=== PATIENT | female | born 1955 | race Caucasian/White ===

== ENCOUNTER 2017-10-01 09:30 | Outpatient (RCR) | payer BC | END 2017-10-03 11:09 | disposition home or self-care (01) | LOC: WSOT 09:30 | DX: M65.841 Other synovitis and tenosynovitis, right hand (principal) ==

== ENCOUNTER → 2017-10-03 | Outpatient (CLI) | payer BC | LOC: COL.VAS 09:00 | DX: I34.0 Nonrheumatic mitral (valve) insufficiency (principal) ==

== ENCOUNTER 2018-01-16 09:00 | Outpatient (RCR) | payer BC | END 2018-01-27 | disposition home or self-care (01) | LOC: WSPT | DX: M54.2 Cervicalgia (principal); M25.511 Pain in right shoulder ==

== ENCOUNTER 2018-05-01 09:00 | Outpatient (RCR) | payer BC | END 2018-05-28 | disposition home or self-care (01) | LOC: WSPT | DX: M54.2 Cervicalgia (principal); M25.511 Pain in right shoulder ==

== ENCOUNTER 2018-08-26 11:00 | Outpatient (RCR) | payer BC | END 2018-08-27 | disposition home or self-care (01) | LOC: WSPT | DX: M54.2 Cervicalgia (principal); M25.511 Pain in right shoulder ==

== ENCOUNTER 2018-11-20 10:15 | Outpatient (RCR) | payer BC | END 2018-12-03 | disposition still patient (30) | LOC: WSPT | DX: M50.30 Other cervical disc degeneration, unspecified cervical region (principal); Z90.710 Acquired absence of both cervix and uterus; Z90.49 Acquired absence of other specified parts of digestive tract; Z98.890 Other specified postprocedural states ==

== ENCOUNTER 2019-02-26 09:00 | Outpatient (RCR) | payer BC | END 2019-03-09 | disposition home or self-care (01) | LOC: WSPT | DX: M50.30 Other cervical disc degeneration, unspecified cervical region (principal); Z90.710 Acquired absence of both cervix and uterus; Z90.49 Acquired absence of other specified parts of digestive tract ==

== ENCOUNTER → 2023-11-28 | Outpatient (CLI) | payer BC | LOC: COL.VAS 10:04 | DX: Z00.00 Encounter for general adult medical examination without abnormal findings (principal); I08.0 Rheumatic disorders of both mitral and aortic valves ==